=== PATIENT | male | born 1965 | race African-American/Black ===

== ENCOUNTER 2019-11-21 19:13 | Inpatient (IN) | payer MEDICAID, MEDICARE ==
[~2019-11-21] VITALS: Ht 165.1 cm; Wt 64.4 kg
[~2019-11-21 19:13] MED LIST: EXTAVIA
[2019-11-21] MEDS ORDERED: ACETAMINOPHEN 325MG TABLET PO STA (19:38)
[2019-11-21] MEDS ORDERED: SODIUM CHLORIDE 0.9% 1,000 ML IV ONE (19:38)
[2019-11-21] MEDS ORDERED: PIPERACILLIN/TAZ 3.375G PREMIX 50 ML IV ONE (19:45)
[2019-11-21 20:28] LABS: HEMATOCRIT. 45.5 % (42.0-52.0); MEAN CORPUSCULAR HEMOGLOBIN 25.1 pg (28.0-32.0); MEAN CORPUSCULAR VOLUME 76.2 fL (80.0-94.0); MEAN PLATELET VOLUME 7.7 fl (7.4-10.4); PLATELET 305 x1000/uL (130-400); RED BLOOD CELL COUNT 5.97 mill/uL (4.7-6.1); RED CELL DISTRIBUTION WIDTH 14.9 % (11.6-14.6)
[2019-11-21 20:35] LABS: CHLORIDE 105 mEq/L (98-107); CLARITY URINE TURBID (CLEAR); COLOR URINE YELLOW (YELLOW); KETONES URINE NEGATIVE (NEGATIVE); LEUKOCYTE ESTERASE URINE 3+ (NEGATIVE); NITRITE URINE POSITIVE (NEGATIVE); OCCULT BLOOD URINE 3+ (NEGATIVE); PROTEIN URINE 3+ (NEGATIVE); SPECIFIC GRAVITY URINE 1.015 (1.005-1.030); UROBILINOGEN URINE 0.2 E.U./dL (0.2-1.0)
[2019-11-21 20:40] LABS: D-DIMER 2.12 mg/L FEU (<0.50); INR 1.5; PROTHROMBIN TIME 16.2 sec (9.6-11.0)
[2019-11-21 21:01] LABS: PLATELET ESTIMATE NORMAL
[2019-11-22] MEDS: ACETAMINOPHEN 325MG TABLET PO PRN ×2 (01:25→21:48)
[2019-11-22] MEDS ORDERED: POTASSIUM CHLORIDE 20MEQ TABLET SR PO NR (10:45)
[2019-11-22] MEDS ORDERED: PIPERACILLIN/TAZOBACTAM 3.375 G in DEXT 5% WATER 100 ML IV SCH (10:45)
[2019-11-22] MEDS ORDERED: ONDANSETRON HCL 4MG/2ML INJ IV PRN (10:45)
[2019-11-22] MEDS ORDERED: ACETAMINOPHEN 325MG TABLET PO PRN (10:45)
[2019-11-22] MEDS: SODIUM CHLORIDE 0.9% 1,000 ML IV SCH (11:04)
[2019-11-22] MEDS: ENOXAPARIN 40MG/0.4ML SYR SUBCUT SCH (11:07)
[2019-11-22 12:18] LABS: HEMATOCRIT. 43.5 % (42.0-52.0); HEMOGLOBIN. 14.5 g/dL (14.0-18.0); MEAN CORPUSCULAR HEMOGLOBIN 25.3 pg (28.0-32.0); MEAN CORPUSCULAR VOLUME 75.8 fL (80.0-94.0); MEAN PLATELET VOLUME 7.6 fl (7.4-10.4); PLATELET 260 x1000/uL (130-400); RED BLOOD CELL COUNT 5.74 mill/uL (4.7-6.1)
[2019-11-22 12:35] LABS: PLATELET ESTIMATE NORMAL
[2019-11-22] MEDS: PIPERACILLIN/TAZOBACTAM 2.25 G in DEXTROSE 5% WATER 50 ML IV SCH ×2 (12:41→18:41)
[2019-11-22 21:00] VITALS: BP 130/90
[2019-11-23] VITALS: BP 129/88
[2019-11-23] MEDS: SODIUM CHLORIDE 0.9% 1,000 ML IV SCH ×2 (00:41→13:35)
[2019-11-23] MEDS: PIPERACILLIN/TAZOBACTAM 2.25 G in DEXTROSE 5% WATER 50 ML IV SCH ×3 (01:23→12:15)
[2019-11-23 04:00] VITALS: BP 118/79
[2019-11-23 08:00] VITALS: BP 121/83
[2019-11-23] MEDS: ENOXAPARIN 40MG/0.4ML SYR SUBCUT SCH (08:03)
[2019-11-23 09:00] LABS: BASOPHILS % 0.3 % (0.0-2.0); EOSINOPHILS % 0.6 % (0.0-5.0); HEMATOCRIT. 41.3 % (42.0-52.0); HEMOGLOBIN. 13.5 g/dL (14.0-18.0); LYMPHOCYTES % 8.7 % (20.0-50.0); MEAN CORPUSCULAR VOLUME 76.4 fL (80.0-94.0); MEAN PLATELET VOLUME 7.4 fl (7.4-10.4); MONOCYTES % 13.6 % (2.0-8.0); NEUTROPHILS % 76.8 % (40.0-76.0); PLATELET 193 x1000/uL (130-400); RED CELL DISTRIBUTION WIDTH 14.9 % (11.6-14.6)
[2019-11-23 12:00] VITALS: BP 121/58
[2019-11-23] MEDS: ACETAMINOPHEN 325MG TABLET PO PRN (13:22)
[2019-11-23 16:00] VITALS: BP 129/78
[2019-11-23] MEDS: CEFAZOLIN 1000MG PREMIX 50 ML IV SCH (18:18)
[2019-11-23 20:35] VITALS: BP 122/82
[2019-11-24] MEDS: CEFAZOLIN 1000MG PREMIX 50 ML IV SCH ×3 (00:35→17:28)
[2019-11-24 00:46] VITALS: BP 125/83
[2019-11-24] MEDS: SODIUM CHLORIDE 0.9% 1,000 ML IV SCH ×2 (03:02→17:28)
[2019-11-24 04:00] VITALS: BP 113/82
[2019-11-24 06:25] LABS: BASOPHILS % 0.2 % (0.0-2.0); EOSINOPHILS % 2.4 % (0.0-5.0); HEMATOCRIT. 35.1 % (42.0-52.0); LYMPHOCYTES % 10.9 % (20.0-50.0); MEAN CORPUSCULAR HEMOGLOBIN 25.2 pg (28.0-32.0); MEAN CORPUSCULAR VOLUME 73.8 fL (80.0-94.0); MEAN PLATELET VOLUME 8.4 fl (7.4-10.4); MONOCYTES % 13.4 % (2.0-8.0); NEUTROPHILS % 73.1 % (40.0-76.0); PLATELET 201 x1000/uL (130-400); RED BLOOD CELL COUNT 4.76 mill/uL (4.7-6.1); RED CELL DISTRIBUTION WIDTH 14.5 % (11.6-14.6)
[2019-11-24 08:00] VITALS: BP 119/74
[2019-11-24] MEDS: ENOXAPARIN 40MG/0.4ML SYR SUBCUT SCH (08:27)
[2019-11-24] MEDS ORDERED: POTASSIUM CHLORIDE 20MEQ TABLET SR PO SCH (09:00)
[2019-11-24 12:00] VITALS: BP 123/88
[2019-11-24 16:00] VITALS: BP 135/86
[2019-11-24] MEDS ORDERED: TAMS-11 MT (18:02)
[2019-11-24 20:04] VITALS: BP 133/95
== END 2019-11-24 23:59 | disposition home or self-care (01) | DRG 720 ==
LOC: ER 19:13 → MICUSO 22:12 → EDBEDREQ 22:16 → EDBEDREQTM 22:16 → EDBEDREQSVC 22:16 → 7WST 11-22 21:32 → 6WST 11-23 16:12
PROVIDERS: ADMIT Internal Medicine; ATTEND Internal Medicine
DX: A41.51 Sepsis due to Escherichia coli [E. coli] (principal); N17.0 Acute kidney failure with tubular necrosis; G35 Multiple sclerosis; R53.83 Other fatigue; N39.0 Urinary tract infection, site not specified; E87.6 Hypokalemia; Z20.828 Contact with and (suspected) exposure to other viral communicable diseases
CPT/HCPCS: 36415; 71045; 80048; 80053; 81003; 82728; 82962; 83605; 84145; 84484; 85025; 85379; 86140; 87077; 87186; 93005; 99291; J0690; J1650; J2543; J7030; J7060; U0003-CS